=== PATIENT | male | born 1940 | race Caucasian/White ===

== ENCOUNTER 2018-09-24 00:27 | Observation (INO) | payer OTHER, MEDICAID ==
[2018-09-24] MEDS: SOD CHLORIDE 0.9% 500 ML IV ×2 (01:00→05:36)
[2018-09-24 01:16] LABS: ADD MAN DIFF? NO
[2018-09-24 01:18] LABS: WHITE BLOOD COUNT 14.6 10^3/ul (4.8-10.8)
[2018-09-24 01:18] LABS: BASOPHILS % 0.2 % (0.0-2.0); EOSINOPHILS % 0.1 % (0.0-7.0); HEMOGLOBIN 12.5 g/dl (14.0-18.0); LYMPHOCYTES % 6.7 % (15.0-51.0); MEAN CORPUSCULAR HEMOGLOBIN 30.3 pg (29.0-33.0); MEAN CORPUSCULAR HGB CONC 32.9 g/dl (32.0-37.0); MEAN PLATELET VOLUME 9.1 fl (7.4-10.4); MONOCYTE # 1.4 10^3/ul (0.3-0.9); MONOCYTES % 9.6 % (0.0-11.0); NEUTROPHIL # 12.1 10^3/ul (1.6-7.5); NEUTROPHILS % 82.6 % (39.0-77.0); PLATELET COUNT 145 10^3/UL (140-415); RED BLOOD COUNT 4.13 10^6/ul (4.70-6.10); RED CELL DISTRIBUTION WIDTH 15.3 % (11.5-14.5)
[2018-09-24 01:39] LABS: INR 1.43; PROTIME 17.7 Sec (11.9-14.9); PT RATIO 1.4
[2018-09-24 02:06] LABS: ANION GAP 11 (5-13); BLOOD UREA NITROGEN 24 mg/dl (7-20); CALCIUM 8.5 mg/dl (8.4-10.2); CARBON DIOXIDE 28 mmol/L (21-31); CHLORIDE 99 mmol/L (97-110); CREATININE 2.01 mg/dl (0.61-1.24); GLUCOSE 179 mg/dl (70-220); POTASSIUM 4.4 mmol/L (3.5-5.1); SODIUM 138 mmol/L (135-144)
[2018-09-24 02:17] LABS: TROPONIN-I 0.095 ng/ml (0.000-0.120)
[2018-09-24] MEDS ORDERED: DOCUSATE SODIUM 100 MG CAP PO (03:30)
[2018-09-24] MEDS ORDERED: BISACODYL (EC) 5 MG TAB PO (03:30)
[2018-09-24] MEDS ORDERED: ONDANSETRON 4 MG INJ IV (03:30)
[2018-09-24] MEDS ORDERED: NACL 0.9% 3 ML SYG IV (03:30)
[2018-09-24 03:45] LABS: ADD UMIC YES; UR ASCORBIC ACID NEGATIVE (NEGATIVE); UR BILIRUBIN (Dip) NEGATIVE (NEGATIVE); UR BLOOD (Dip) 3+ mg/dL (NEGATIVE); UR CLARITY SLIGHTLY CLOUDY (CLEAR); UR COLOR AMBER (YELLOW); UR GLUCOSE (Dip) NEGATIVE (NEGATIVE); UR KETONES (Dip) NEGATIVE (NEGATIVE); UR LEUKOCYTE ESTERASE (Dip) NEGATIVE Leu/ul (NEGATIVE); UR NITRITE (Dip) NEGATIVE (NEGATIVE); UR RBC 36 /HPF (0-5); UR SPECIFIC GRAVITY (Dip) 1.016 (1.003-1.030); UR TOTAL PROTEIN (Dip) 2+ mg/dl (NEGATIVE); UR UROBILINOGEN (Dip) 1+ mg/dL (NEGATIVE); UR WBC 4 /HPF (0-5)
[2018-09-24] MEDS ORDERED: DEXTROSE 50% 50 ML SYRINGE IV ×2 (05:00)
[2018-09-24] MEDS ORDERED: GLUCOSE GEL 15 GRAM TUBE PO ×2 (05:00)
[2018-09-24] MEDS ORDERED: GLUCOSE GEL 15 GRAM TUBE BUCCAL (05:00)
[2018-09-24] MEDS ORDERED: GLUCAGON 1 MG INJ IM (05:00)
[2018-09-24] MEDS: ALBUTEROL 0.083% (NEB) 2.5 MG/3 ML AMP NEB (05:39)
[2018-09-24] MEDS: IPRATROPIUM (NEB) 0.5 MG/2.5 ML AMP NEB (05:39)
[2018-09-24 07:29] LABS: ADD MAN DIFF? NO
[2018-09-24 07:43] LABS: BASOPHILS % 0.2 % (0.0-2.0); EOSINOPHILS % 0.2 % (0.0-7.0); HEMATOCRIT 35.4 % (42.0-52.0); HEMOGLOBIN 11.7 g/dl (14.0-18.0); LYMPHOCYTES % 15.9 % (15.0-51.0); MEAN CORPUSCULAR HEMOGLOBIN 30.6 pg (29.0-33.0); MEAN CORPUSCULAR HGB CONC 33.1 g/dl (32.0-37.0); MEAN CORPUSCULAR VOLUME 92.7 fl (82.0-101.0); MEAN PLATELET VOLUME 9.5 fl (7.4-10.4); MONOCYTE # 1.2 10^3/ul (0.3-0.9); NEUTROPHIL # 9.1 10^3/ul (1.6-7.5); NEUTROPHILS % 73.2 % (39.0-77.0); PLATELET COUNT 141 10^3/UL (140-415); RED BLOOD COUNT 3.82 10^6/ul (4.70-6.10); RED CELL DISTRIBUTION WIDTH 15.6 % (11.5-14.5)
[2018-09-24 07:43] LABS: WHITE BLOOD COUNT 12.4 10^3/ul (4.8-10.8)
[2018-09-24 07:54] LABS: CREATINE KINASE 83 IU/L (23-200)
[2018-09-24 08:03] LABS: INR 1.57; PROTIME 19.1 Sec (11.9-14.9); PT RATIO 1.5
[2018-09-24 08:03] LABS: LACTIC ACID 1.7 mmol/L (0.5-2.0)
[2018-09-24 08:07] LABS: CK INDEX 1.1; CK-MB 0.95 ng/ml (0.0-2.4); TROPONIN-I 0.076 ng/ml (0.000-0.120)
[2018-09-24 08:29] LABS: ALANINE AMINOTRANSFERASE 27 IU/L (13-69); ALBUMIN 3.5 g/dl (3.3-4.9); ALBUMIN/GLOBULIN RATIO 1.09; ALKALINE PHOSPHATASE 55 IU/L (42-121); ANION GAP 10 (5-13); ASPARTATE AMINO TRANSFERASE 22 IU/L (15-46); BILIRUBIN,INDIRECT 0.6 mg/dl (0-1.1); BILIRUBIN,TOTAL 0.6 mg/dl (0.2-1.3); BLOOD UREA NITROGEN 26 mg/dl (7-20); CALCIUM 8.1 mg/dl (8.4-10.2); CARBON DIOXIDE 25 mmol/L (21-31); CHLORIDE 103 mmol/L (97-110); CREATININE 1.84 mg/dl (0.61-1.24); GLUCOSE 203 mg/dl (70-220); POTASSIUM 4.2 mmol/L (3.5-5.1); SODIUM 138 mmol/L (135-144); TOTAL PROTEIN 6.7 g/dl (6.1-8.1)
[2018-09-24] MEDS: CREON (12k-38k-60k) 1 CAP PO ×3 (08:41→20:25)
[2018-09-24] MEDS: VITAMIN E 400 UNITS CAP PO (08:41)
[2018-09-24] MEDS: POTASSIUM CHLORIDE (SR) 10 MEQ TAB PO (08:42)
[2018-09-24] MEDS: PANTOPRAZOLE (EC) 40 MG TAB PO (08:45)
[2018-09-24] MEDS: INSULIN GLARGINE [LANTus] (100 UNITS/ML) SYG SC ×2 (08:50→20:35)
[2018-09-24] MEDS: INSULIN ASPART [NOVOLOG] 3 ML PEN SC ×6 (08:50→20:42)
[2018-09-24] MEDS: ACETAMINOPHEN 325 MG TAB PO (09:01)
[2018-09-24 09:02] LABS: B-TYPE NATRIURETIC PEPTIDE 2180 PG/ML (0-450)
[2018-09-24 09:21] LABS: LACTIC ACID 1.4 mmol/L (0.5-2.0)
[2018-09-24] MEDS: FUROSEMIDE 20 MG INJ IV (10:11)
[2018-09-24] MEDS: METOPROLOL 100 MG TAB PO ×2 (10:12→20:30)
[2018-09-24 11:08] LABS: CREATINE KINASE 86 IU/L (23-200)
[2018-09-24 11:27] LABS: CK INDEX 1.1; CK-MB 0.95 ng/ml (0.0-2.4)
[2018-09-24 11:33] LABS: TROPONIN-I 0.044 ng/ml (0.000-0.120)
[2018-09-24] MEDS: GUAIFENESIN/DM 5ML CUP PO ×2 (11:47→20:30)
[2018-09-24] MEDS: GABAPENTIN 100 MG CAP PO ×2 (12:32→20:25)
[2018-09-24] MEDS: DIGOXIN 0.125 MG TAB PO (12:34)
[2018-09-24] MEDS: ENOXAPARIN 80 MG/0.8 ML SYG SC (12:46)
[2018-09-24] MEDS: WARFARIN 2 MG TAB PO (17:42)
[2018-09-24] MEDS: ATORVASTATIN 80 MG TAB PO (20:25)
[2018-09-24] MEDS: ZOLPIDEM 5 MG TAB PO (22:04)
[2018-09-25] MEDS: ACCU-CHEK XX (02:00)
[2018-09-25] MEDS: ACETAMINOPHEN 325 MG TAB PO (03:14)
[2018-09-25] MEDS: PANTOPRAZOLE (EC) 40 MG TAB PO (05:32)
[2018-09-25 07:21] LABS: ADD MAN DIFF? NO
[2018-09-25 07:30] LABS: WHITE BLOOD COUNT 9.6 10^3/ul (4.8-10.8)
[2018-09-25 07:30] LABS: BASOPHILS % 0.3 % (0.0-2.0); EOSINOPHILS % 0.4 % (0.0-7.0); HEMATOCRIT 34.9 % (42.0-52.0); HEMOGLOBIN 11.4 g/dl (14.0-18.0); LYMPHOCYTES # 1.4 10^3/ul (0.8-2.9); LYMPHOCYTES % 14.1 % (15.0-51.0); MEAN CORPUSCULAR HEMOGLOBIN 30.3 pg (29.0-33.0); MEAN CORPUSCULAR HGB CONC 32.7 g/dl (32.0-37.0); MEAN CORPUSCULAR VOLUME 92.8 fl (82.0-101.0); MEAN PLATELET VOLUME 9.9 fl (7.4-10.4); MONOCYTE # 0.9 10^3/ul (0.3-0.9); MONOCYTES % 9.6 % (0.0-11.0); NEUTROPHIL # 7.2 10^3/ul (1.6-7.5); NEUTROPHILS % 75.3 % (39.0-77.0); PLATELET COUNT 141 10^3/UL (140-415); RED BLOOD COUNT 3.76 10^6/ul (4.70-6.10); RED CELL DISTRIBUTION WIDTH 15.7 % (11.5-14.5)
[2018-09-25 07:46] LABS: ANION GAP 9 (5-13); BLOOD UREA NITROGEN 26 mg/dl (7-20); CALCIUM 8.7 mg/dl (8.4-10.2); CARBON DIOXIDE 29 mmol/L (21-31); CHLORIDE 101 mmol/L (97-110); CREATININE 1.46 mg/dl (0.61-1.24); GLUCOSE 152 mg/dl (70-220); POTASSIUM 4.1 mmol/L (3.5-5.1); SODIUM 139 mmol/L (135-144)
[2018-09-25 07:49] LABS: INR 1.51; PROTIME 18.5 Sec (11.9-14.9); PT RATIO 1.4
[2018-09-25] MEDS: VITAMIN E 400 UNITS CAP PO (08:18)
[2018-09-25] MEDS: POTASSIUM CHLORIDE (SR) 10 MEQ TAB PO (08:23)
[2018-09-25] MEDS: AMLODIPINE 10 MG TAB PO (08:24)
[2018-09-25] MEDS: FENOFIBRATE 145 MG TAB PO (08:24)
[2018-09-25] MEDS: ESCITALOPRAM 10 MG TAB PO (08:25)
[2018-09-25] MEDS: METOPROLOL 100 MG TAB PO (08:25)
[2018-09-25] MEDS: GABAPENTIN 100 MG CAP PO ×3 (08:25→20:31)
[2018-09-25] MEDS: INSULIN ASPART [NOVOLOG] 3 ML PEN SC ×6 (08:32→21:47)
[2018-09-25] MEDS: INSULIN GLARGINE [LANTus] (100 UNITS/ML) SYG SC ×2 (08:33→21:48)
[2018-09-25] MEDS: CREON (12k-38k-60k) 1 CAP PO ×3 (08:35→17:46)
[2018-09-25] MEDS ORDERED: LISINOPRIL 20 MG TAB PO (09:00)
[2018-09-25] MEDS: GUAIFENESIN/DM 5ML CUP PO (10:22)
[2018-09-25] MEDS: ENOXAPARIN 80 MG/0.8 ML SYG SC ×2 (10:54→21:48)
[2018-09-25] MEDS ORDERED: PROMETHAZINE/CODEINE 5ML CUP PO (11:00)
[2018-09-25] MEDS: PROMETHAZINE/CODEINE 5ML CUP PO (11:06)
[2018-09-25] MEDS: CEFTRIAXONE 1 GM/50 ML (PMX) 50 ML IVPB (11:06)
[2018-09-25 11:24] LABS: HEMOGLOBIN A1C 7.1 % (0-5.9)
[2018-09-25] MEDS: DIGOXIN 0.125 MG TAB PO (12:46)
[2018-09-25] MEDS: ALBUTEROL/IPRATROPIUM (NEB) 3 ML AMP HHN ×3 (13:28→20:44)
[2018-09-25] MEDS: AZITHROMYCIN 500MG/NS (PMX) 250 ML IVPB (14:04)
[2018-09-25] MEDS: WARFARIN 2 MG TAB PO (17:44)
[2018-09-25] MEDS: FUROSEMIDE 40 MG INJ IV (17:45)
[2018-09-25] MEDS: ATORVASTATIN 80 MG TAB PO (20:31)
[2018-09-26] MEDS: ALBUTEROL/IPRATROPIUM (NEB) 3 ML AMP HHN ×6 (00:37→20:12)
[2018-09-26] MEDS: ACCU-CHEK XX (01:59)
[2018-09-26] MEDS: PANTOPRAZOLE (EC) 40 MG TAB PO (05:17)
[2018-09-26 06:21] LABS: ADD MAN DIFF? NO
[2018-09-26 06:30] LABS: WHITE BLOOD COUNT 9.2 10^3/ul (4.8-10.8)
[2018-09-26 06:30] LABS: BASOPHILS % 0.2 % (0.0-2.0); EOSINOPHILS % 0.3 % (0.0-7.0); HEMATOCRIT 34.5 % (42.0-52.0); HEMOGLOBIN 11.5 g/dl (14.0-18.0); LYMPHOCYTES # 1.2 10^3/ul (0.8-2.9); LYMPHOCYTES % 13.1 % (15.0-51.0); MEAN CORPUSCULAR HEMOGLOBIN 30.6 pg (29.0-33.0); MEAN CORPUSCULAR HGB CONC 33.3 g/dl (32.0-37.0); MEAN CORPUSCULAR VOLUME 91.8 fl (82.0-101.0); MEAN PLATELET VOLUME 9.1 fl (7.4-10.4); MONOCYTE # 0.8 10^3/ul (0.3-0.9); MONOCYTES % 8.8 % (0.0-11.0); NEUTROPHIL # 7.1 10^3/ul (1.6-7.5); NEUTROPHILS % 77.2 % (39.0-77.0); PLATELET COUNT 145 10^3/UL (140-415); RED BLOOD COUNT 3.76 10^6/ul (4.70-6.10); RED CELL DISTRIBUTION WIDTH 15.1 % (11.5-14.5)
[2018-09-26 06:43] LABS: INR 1.59; PROTIME 19.3 Sec (11.9-14.9); PT RATIO 1.5
[2018-09-26 07:08] LABS: B-TYPE NATRIURETIC PEPTIDE 4950 PG/ML (0-450)
[2018-09-26 07:12] LABS: ANION GAP 10 (5-13); BLOOD UREA NITROGEN 26 mg/dl (7-20); CARBON DIOXIDE 30 mmol/L (21-31); CHLORIDE 101 mmol/L (97-110); CREATININE 1.49 mg/dl (0.61-1.24); GLUCOSE 139 mg/dl (70-220); POTASSIUM 3.8 mmol/L (3.5-5.1); SODIUM 141 mmol/L (135-144)
[2018-09-26 07:12] LABS: MAGNESIUM 2.2 mg/dl (1.7-2.5)
[2018-09-26] MEDS: INSULIN ASPART [NOVOLOG] 3 ML PEN SC ×6 (07:33→21:00)
[2018-09-26] MEDS: VITAMIN E 400 UNITS CAP PO (08:35)
[2018-09-26] MEDS: AMLODIPINE 10 MG TAB PO (08:36)
[2018-09-26] MEDS: GABAPENTIN 100 MG CAP PO ×3 (08:37→20:27)
[2018-09-26] MEDS: FENOFIBRATE 145 MG TAB PO (08:37)
[2018-09-26] MEDS: POTASSIUM CHLORIDE (SR) 10 MEQ TAB PO (08:37)
[2018-09-26] MEDS: CREON (12k-38k-60k) 1 CAP PO ×3 (08:37→17:03)
[2018-09-26] MEDS: ESCITALOPRAM 10 MG TAB PO (08:38)
[2018-09-26] MEDS: GUAIFENESIN/DM 5ML CUP PO (08:52)
[2018-09-26] MEDS: INSULIN GLARGINE [LANTus] (100 UNITS/ML) SYG SC ×2 (08:57→21:20)
[2018-09-26] MEDS: ENOXAPARIN 80 MG/0.8 ML SYG SC ×2 (08:58→20:16)
[2018-09-26] MEDS: CEFTRIAXONE 1 GM/50 ML (PMX) 50 ML IVPB (10:31)
[2018-09-26] MEDS: AZITHROMYCIN 500MG/NS (PMX) 250 ML IVPB (12:29)
[2018-09-26] MEDS: FUROSEMIDE 40 MG INJ IV (12:30)
[2018-09-26] MEDS: ACETAMINOPHEN 325 MG TAB PO ×2 (12:30→20:11)
[2018-09-26] MEDS: DIGOXIN 0.125 MG TAB PO (12:40)
[2018-09-26] MEDS: WARFARIN 10 MG TAB PO (17:03)
[2018-09-26] MEDS: ATORVASTATIN 80 MG TAB PO (20:13)
[2018-09-26] MEDS: PIPER-TAZO 2.25 GM (PMX) 50 ML IVPB (22:16)
[2018-09-27] MEDS: ALBUTEROL/IPRATROPIUM (NEB) 3 ML AMP HHN ×3 (01:22→09:41)
[2018-09-27] MEDS: ACCU-CHEK XX ×2 (02:48→02:50)
[2018-09-27] MEDS: GUAIFENESIN/DM 5ML CUP PO ×2 (04:06→09:24)
[2018-09-27] MEDS: ACETAMINOPHEN 325 MG TAB PO ×2 (04:07→10:15)
[2018-09-27] MEDS: DOCUSATE SODIUM 100 MG CAP PO (04:08)
[2018-09-27] MEDS: PANTOPRAZOLE (EC) 40 MG TAB PO (05:43)
[2018-09-27] MEDS: PIPER-TAZO 2.25 GM (PMX) 50 ML IVPB (05:43)
[2018-09-27 06:10] LABS: ADD MAN DIFF? NO
[2018-09-27 06:21] LABS: WHITE BLOOD COUNT 5.6 10^3/ul (4.8-10.8)
[2018-09-27 06:21] LABS: BASOPHILS % 0.5 % (0.0-2.0); EOSINOPHILS # 0.1 10^3/ul (0.0-0.5); EOSINOPHILS % 1.6 % (0.0-7.0); HEMATOCRIT 34.7 % (42.0-52.0); HEMOGLOBIN 11.5 g/dl (14.0-18.0); LYMPHOCYTES % 18.4 % (15.0-51.0); MEAN CORPUSCULAR HEMOGLOBIN 30.3 pg (29.0-33.0); MEAN CORPUSCULAR HGB CONC 33.1 g/dl (32.0-37.0); MEAN CORPUSCULAR VOLUME 91.3 fl (82.0-101.0); MEAN PLATELET VOLUME 9.4 fl (7.4-10.4); MONOCYTE # 0.5 10^3/ul (0.3-0.9); MONOCYTES % 8.8 % (0.0-11.0); NEUTROPHIL # 3.9 10^3/ul (1.6-7.5); NEUTROPHILS % 70.2 % (39.0-77.0); PLATELET COUNT 171 10^3/UL (140-415); RED CELL DISTRIBUTION WIDTH 14.9 % (11.5-14.5)
[2018-09-27 06:29] LABS: ANION GAP 10 (5-13); BLOOD UREA NITROGEN 32 mg/dl (7-20); CARBON DIOXIDE 29 mmol/L (21-31); CHLORIDE 102 mmol/L (97-110); CREATININE 1.67 mg/dl (0.61-1.24); GLUCOSE 85 mg/dl (70-220); POTASSIUM 3.6 mmol/L (3.5-5.1); SODIUM 141 mmol/L (135-144)
[2018-09-27 06:40] LABS: MAGNESIUM 2.1 mg/dl (1.7-2.5)
[2018-09-27 06:43] LABS: INR 1.87; PROTIME 21.9 Sec (11.9-14.9); PT RATIO 1.7
[2018-09-27] MEDS: INSULIN ASPART [NOVOLOG] 3 ML PEN SC ×3 (07:25→11:57)
[2018-09-27] MEDS: CREON (12k-38k-60k) 1 CAP PO ×2 (08:20→11:56)
[2018-09-27] MEDS: ESCITALOPRAM 10 MG TAB PO (09:14)
[2018-09-27] MEDS: VITAMIN E 400 UNITS CAP PO (09:14)
[2018-09-27] MEDS: POTASSIUM CHLORIDE (SR) 10 MEQ TAB PO (09:14)
[2018-09-27] MEDS: GABAPENTIN 100 MG CAP PO ×2 (09:15→12:42)
[2018-09-27] MEDS: FENOFIBRATE 145 MG TAB PO (09:15)
[2018-09-27] MEDS: ENOXAPARIN 80 MG/0.8 ML SYG SC (09:16)
[2018-09-27] MEDS: INSULIN GLARGINE [LANTus] (100 UNITS/ML) SYG SC (09:17)
[2018-09-27] MEDS: AMLODIPINE 5 MG TAB PO (10:14)
[2018-09-27] MEDS: DIGOXIN 0.125 MG TAB PO (12:41)
[2018-09-27] MEDS ORDERED: WARFARIN 2 MG TAB PO (17:00)
== END 2018-09-27 13:15 | disposition home or self-care (01) ==
LOC: E/R 00:27 → TEL 03:13
PROVIDERS: Family Medicine
DX: J18.9 Pneumonia, unspecified organism (principal); I13.0 Hypertensive heart and chronic kidney disease with heart failure and stage 1 through stage 4 chronic kidney disease, or unspecified chronic kidney disease; E11.22 Type 2 diabetes mellitus with diabetic chronic kidney disease; N18.9 Chronic kidney disease, unspecified; I50.33 Acute on chronic diastolic (congestive) heart failure; N17.9 Acute kidney failure, unspecified; N40.0 Benign prostatic hyperplasia without lower urinary tract symptoms; E78.00 Pure hypercholesterolemia, unspecified; D69.6 Thrombocytopenia, unspecified; I48.0 Paroxysmal atrial fibrillation; E78.5 Hyperlipidemia, unspecified; I34.0 Nonrheumatic mitral (valve) insufficiency; I07.1 Rheumatic tricuspid insufficiency; I16.0 Hypertensive urgency; Z79.4 Long term (current) use of insulin; Z86.73 Personal history of transient ischemic attack (TIA), and cerebral infarction without residual deficits; Z87.891 Personal history of nicotine dependence; Z79.01 Long term (current) use of anticoagulants; Z95.0 Presence of cardiac pacemaker; I27.20 Pulmonary hypertension, unspecified
CPT/HCPCS: 36415; 70450; 71045; 71250; 80048; 80053; 81001; 82550; 82553; 82962; 83036; 83605; 83735; 83880; 84484; 85025; 85610; 85730; 87040; 87086; 93005; 93306; 93880; 94640; 94664; 97161; 97166; 99285-25; G0378